=== PATIENT | female | born 2000 | race Caucasian/White ===

== ENCOUNTER 2022-08-10 00:39 | Day surgery (SDC) | payer OTHER, SELFPAY ==
[2022-07-29 15:23] VITALS: BMI 22.8
--- NOTE | 2022-08-09 12:43 | PM.HPGS ---
History of Present Illness History of Present Illness Consent: Risks, benefits, and alternatives have been discussed and questions answered. Patient agrees to proceed with procedure. Chief complaint: disease of anus/rectum unspecified, abdominal pain Narrative: Johanna Cramer is a 22 year old female who was referred for office about 2 weeks ago with complaints of severe anal pain thought to be due to a fissure. Since April she had been having sharp glass like pains in the rectum and anus. She would see blood on tissue when wiping and at times in stool as well. In addition that as she was having abdominal cramping that was so severe she would become diaphoretic and feels as though she was going to pass out. This was occurring about 2 or 3 times a day. She was prescribed a compounded cream of lidocaine 2% nifedipine 0.2% and hydrocortisone 2.5% to apply 3 or 4 times a day. She has also been using MiraLax. Review of Systems Review of Systems: All systems reviewed & are unremarkable except as noted in HPI and below PMFSH Past Medical History Medical History Abdominal cramping Anal fissure Anal lesion Rectal bleeding Rectal pain Social History Social History Smoking status: Never smoker Living arrangements: with family Meds Home Medications and Allergies Home Medications Medication Instructions Recorded Confirmed Type desogestrel-ethinyl estradiol 0.1 1 tablet PO DAILY 07/26/22 07/29/22 History mg/0.125 mg/0.15 mg-25 mcg tablet pharmacy compounding accessory See Rx Instructions miscellaneous 07/26/22 07/29/22 Rx .COMPLEX #1 ea topiramate 100 mg tablet (Topamax) 100 mg PO BID 07/26/22 07/29/22 History Allergies Allergy/AdvReac Type Severity Reaction Status Date / Time No Known Allergies Allergy Verified 08/10/22 08:21 Exam Const: General: alert Orientation/consciousness: patient oriented x3 Resp: Auscultation: clear to auscultation bilaterally Cardio: Rhythm: regular rhythm GI: GI Palp: Yes Soft to palpation and No Tenderness to palpation present (GI) Neuro: General: patient oriented x3 Assessment and Plan Assessment and plan (1) Rectal bleeding: Code(s): K62.5 - Hemorrhage of anus and rectum Status: Acute Assessment and Plan: Colonoscopy with possible biopsy or polypectomy or cautery or injection of substances. (2) Anal lesion: Code(s): K62.9 - Disease of anus and rectum, unspecified Status: Acute
[2022-08-10 08:22] VITALS: BP 151/85; PULSE 120; RESP 18; TEMP 36.5; O2SAT 100
[2022-08-10] MEDS: LACTATED RINGERS 1,000 ML 150 ML IV CONT (08:31)
--- NOTE | 2022-08-10 08:40 | WPDANESEPPF ---
Anes - Initial Pre Proc Eval Procedure: Operation Date: 08/10/22 07:30 Proposed Procedures p Colonoscopy - Lalit Myers MD Date/Time: 08/10/22 08:40 Surgeon: Lalit Myers MD Pre Op Diagnosis: disease of anus/rectum unspecified, abdominal pain Patient Data Age: 22 Gender: F Height: 1.75 m Weight: 66 kg Last Vital Signs Temp 97.7 F 08/10/22 08:22 Pulse 120 H 08/10/22 08:22 Resp 18 08/10/22 08:22 BP 151/85 H 08/10/22 08:22 Pulse Ox 100 08/10/22 08:22 O2 Del Method Room Air 08/10/22 08:22 Allergies Allergy/AdvReac Type Severity Reaction Status Date / Time No Known Allergies Allergy Verified 08/10/22 08:21 Home Medications Medication Instructions Recorded Confirmed Type desogestrel-ethinyl estradiol 0.1 1 tablet PO DAILY 07/26/22 07/29/22 History mg/0.125 mg/0.15 mg-25 mcg tablet pharmacy compounding accessory See Rx Instructions miscellaneous 07/26/22 07/29/22 Rx .COMPLEX #1 ea topiramate 100 mg tablet (Topamax) 100 mg PO BID 07/26/22 07/29/22 History Patient hx anesthesia problems: none Family hx anesthesia problems: none Results Review: All pre-operative results and documents have been reviewed as part of the pre-operative evaluation. [facility] Past Medical History Medical History (Updated 07/26/22 @ 14:24 by Isa Rosales, GIS DATABASE ADMINISTRATOR) Abdominal cramping Anal fissure Anal lesion Rectal bleeding Rectal pain Social History Social History Smoking status: Never smoker Living arrangements: with family Anes - Eval Final PreProcedure Day of Procedure 08/10/22 08:40 Patient weight: normal Heart: regular rate and rhythm Lungs: clear to auscultation Airway: Mallampati scale class II Neurological: alert and oriented Last oral intake: >/= 8 hours ASA classification: II Emergent: no Anesthetic plan: proceed Anesthesia type and monitoring: general GIVS and standard monitoring Results Review: All pre-operative results and documents have been reviewed as part of the pre-operative evaluation. Informed Consent: The patient's anesthetic plan and its attendant risks and benefits were discussed with the patient/family/POA. Questions were solicited and answers provided to the satisfaction of the patient/family/POA.
[2022-08-10 09:19] VITALS: BP 113/69; PULSE 81; RESP 16; O2SAT 100
[2022-08-10 09:29] VITALS: BP 108/58; PULSE 85; RESP 16; O2SAT 100
[2022-08-10 09:39] VITALS: BP 110/68; PULSE 68; RESP 16; O2SAT 100
== END 2022-08-10 09:47 | disposition home or self-care (01) ==
PROVIDERS: Visit Provider Internal Medicine Gastroenterology
PROC: 0DJD8ZZ Inspection of Lower Intestinal Tract, Via Natural or Artificial Opening Endoscopic (ICD-10-PCS; CPT 45378; principal; 2022-08-10 07:30)
DX: K62.5 Hemorrhage of anus and rectum (principal); K62.89 Other specified diseases of anus and rectum
CPT/HCPCS: 45378; J2704; J7120